=== PATIENT | male | born 1965 | race Caucasian/White ===

== ENCOUNTER 2018-03-14 17:34 | Inpatient (IN) | payer OTHER ==
[2018-03-14 18:13] LABS: Absolute Lymphocytes (CBC) 0.6 K/uL (0.7-4.9); Absolute Monocytes 0.5 K/uL (0.1-1.3); Absolute Neutrophil 10.9 K/uL (1.8-8.0); Basophils % 0.3 % (0-1.3); Eosinophils % 0.5 % (0-4.4); Hematocrit 37.6 % (39.6-49.0); Lymphocytes % 5.3 % (15.3-44.8); MCH 29.7 pg (27.0-35.0); MCV 88.2 fL (80-100); MPV 8.9 fL (7.6-11.3); Monocytes % 4.4 % (3.3-12.3); RBC Red Blood Cell Count 4.27 M/uL (4.33-5.43)
[2018-03-14] MEDS ORDERED: NA CHLORIDE 0.9% 1,000 ML ONE (18:31)
[2018-03-14 18:40] LABS: ALT/SGPT 13 U/L (12-78); AST/SGOT 14 U/L (15-37); Albumin 3.2 g/dL (3.4-5.0); Alkaline Phosphatase 72 U/L (45-117); BUN Blood Urea Nitrogen 16 mg/dL (7-18); Bicarbonate 22 mmol/L (21-32); Bilirubin Direct 0.4 mg/dL (0-0.2); Bilirubin Total 2.1 mg/dL (0.2-1.0); CKMB Creatine Kinase MB < 1.0 ng/mL (0.3-3.6); Creatine Phosphokinase 107 U/L (39-308); Glucose Level 113 mg/dL (74-106); NT PRO-BNP 173 pg/mL (<125); Potassium 3.1 mmol/L (3.5-5.1); Protein, Total 6.4 g/dL (6.4-8.2); Sodium Level 127 mmol/L (136-145); Troponin (Emerg Dept Use Only) < 0.02 ng/mL (0.0-0.045)
[2018-03-14 18:42] LABS: Magnesium 1.4 mg/dL (1.8-2.4); Protime INR 1.19
[2018-03-14] MEDS ORDERED: Magnesium Sulfate 2gm IVPB 2 G/50 ML BAG IV ONE (18:56)
--- NOTE | 2018-03-14 19:22 | EKG ---
Test Date: 2018-03-14 Test Time: 17:36:39 Body Specialist: ALBINA MEASUREMENT RESULTS: Intervals: Rate: 73 AK: 144 QRSD: 92 QT: 410 QTc: 451 [place]: P: 76 AK: 144 QRS: 46 T: 48 INTERPRETIVE STATEMENTS: Normal sinus rhythm Normal ECG No previous ECG available for comparison Electronically Signed On 03-14-18 19:22:28 CDT by Riki Bonilla
--- NOTE | 2018-03-14 19:35 | EDPHYS ---
Physician Documentation [facility] Name: Patricia Douglas Age: 52 yrs Sex: Male : 1965 Arrival Date: 03/14/2018 Time: 17:36 Bed 19 Private MD: ED Physician Benjamin Cortes HPI: 03/14 19:07 This 52 yrs old Male presents to ER via EMS with complaints of Heat Exposure. snw 19:07 Pt states he has felt bad for one week, "drained". Pt states he had some antibiotics snw for a staph infection that he finished recently. Took meds x 2 weeks. Will get pharmacy to send medication list. Onset: The symptoms/episode began/occurred gradually, 1 week(s) ago, and became persistent. Severity of symptoms: At their worst the symptoms were moderate today. The patient has not experienced similar symptoms in the past. as noted. Pt sees MD in [place] in [place]. Historical: - Allergies: 17:41 Codeine; hb - Home Meds: 17:41 Bactrim DS Oral [Active]; hb - PMHx: 17:41 Ulcers; hb - PSHx: 17:41 neck; hb - Immunization history:: Adult Immunizations up to date. - Social history:: Smoking status: Patient/guardian denies using tobacco. - Ebola Screening: : No symptoms or risks identified at this time. ROS: 19:04 Eyes: Negative for injury, pain, redness, and discharge, ENT: Negative for injury, snw pain, and discharge, Neck: Negative for injury, pain, and swelling, Cardiovascular: Negative for chest pain, palpitations, and edema, Respiratory: Negative for shortness of breath, cough, wheezing, and pleuritic chest pain. 19:04 Back: Negative for injury and pain. 19:04 Skin: Negative for injury, rash, and discoloration. 19:04 Constitutional: Positive for malaise. 19:04 Abdomen/GI: Positive for nausea and vomiting, anorexia. 19:04 : Positive for self cath. 19:04 MS/extremity: Positive for malaise/fatigue. 19:04 Neuro: Positive for dizziness, near syncope, over heated. Exam: 19:01 Head/Face: Normocephalic, atraumatic. Eyes: Pupils equal round and reactive to light, snw extra-ocular motions intact. Lids and lashes normal. Conjunctiva and sclera are non-icteric and not injected. Cornea within normal limits. Periorbital areas with no swelling, redness, or edema. ENT: Nares patent. No nasal discharge, no septal abnormalities noted. Tympanic membranes are normal and external auditory canals are clear. Oropharynx with no redness, swelling, or masses, exudates, or evidence of obstruction, uvula midline. Mucous membranes moist. Neck: Trachea midline, no thyromegaly or masses palpated, and no cervical lymphadenopathy. Supple, full range of motion without nuchal rigidity, or vertebral point tenderness. No Meningismus. Chest/axilla: Normal chest wall appearance and motion. Nontender with no deformity. No lesions are appreciated. Cardiovascular: Regular rate and rhythm with a normal S1 and S2. No gallops, murmurs, or rubs. Normal PMI, no JVD. No pulse deficits. Respiratory: Lungs have equal breath sounds bilaterally, clear to auscultation and percussion. No rales, rhonchi or wheezes noted. No increased work of breathing, no retractions or nasal flaring. Abdomen/GI: Soft, non-tender, with normal bowel sounds. No distension or tympany. No guarding or rebound. No evidence of tenderness throughout. Back: No spinal tenderness. No costovertebral tenderness. Full range of motion. 19:01 Constitutional: The patient appears awake, anxious, listless. 19:01 Skin: Appearance: Color: pale. 19:01 Neuro: Orientation: is normal, Mentation: able to follow commands, Memory: is normal, seizure activity, is not displayed by the patient, Abnormal movements: there are no abnormal movements. 19:01 Psych: Affect is odd. Vital Signs: 17:36 BP 148 / 73; Pulse 70; Resp 16; Temp 98.1; Pulse Ox 100% on R/A; Pain 0/10; hb 18:21 BP 138 / 64; Pulse 88; Resp 15; Pulse Ox 100% on R/A; hb 19:00 BP 141 / 73; Pulse 70; Resp 21; Pulse Ox 100% ; bp 20:15 BP 142 / 77; Pulse 67; Resp 12; Pulse Ox 95% ; bp MDM: 17:37 Patient medically screened. [facility] 19:28 Data reviewed: vital signs, nurses notes. Data interpreted: Pulse oximetry: on room air snw is 100 %. Interpretation: normal. Counseling: I had a detailed discussion with the patient and/or guardian regarding: the historical points, exam findings, and any diagnostic results supporting the discharge/admit diagnosis, the presence of at least one elevated blood pressure reading (>120/80) during this emergency department visit, lab results, the need for further work-up and treatment in the hospital. 19:33 Physician consultation: Andie Steinberg MD was called at 19:33, was contacted at 19:33, snw regarding admission, to the telemetry unit. Refusal of service: The patient/guardian displays adequate decision making capability and despite a detailed discussion of alternatives, benefits, risks, and consequences refuses: all X-rays. 03/14 17:47 Order name: Basic Metabolic Panel; Complete Time: 18:43 snw 03/14 17:47 Order name: CBC with Diff; Complete Time: 19:58 snw 03/14 17:47 Order name: Ckmb; Complete Time: 18:43 snw 03/14 17:47 Order name: CPK; Complete Time: 18:43 snw 03/14 17:47 Order name: LFT's; Complete Time: 18:43 snw 03/14 17:47 Order name: Magnesium; Complete Time: 18:43 snw 03/14 17:47 Order name: NT PRO-BNP; Complete Time: 18:43 snw 03/14 17:47 Order name: PT-INR; Complete Time: 18:43 snw 03/14 17:47 Order name: Ptt, Activated; Complete Time: 18:43 snw 03/14 17:47 Order name: Troponin (emerg Dept Use Only); Complete Time: 18:43 snw 03/14 18:30 Order name: CBC Smear Scan; Complete Time: 19:58 EDMS 03/14 18:42 Order name: Urine Dipstick--Ancillary (enter results) bd 03/14 18:46 Order name: Add On-Lab snw 03/14 18:57 Order name: Osmolality, Serum EDMS 03/14 17:47 Order name: XRAY Chest (1 view) snw 03/14 17:47 Order name: EKG; Complete Time: 17:48 snw 03/14 17:47 Order name: Cardiac monitoring; Complete Time: 18:18 snw 03/14 17:47 Order name: EKG - Nurse/Tech; Complete Time: 18:19 snw 03/14 17:47 Order name: IV Saline Lock; Complete Time: 18:19 snw 03/14 17:47 Order name: Labs collected and sent; Complete Time: 18:19 snw 03/14 17:47 Order name: O2 Per Protocol; Complete Time: 18:19 snw 03/14 17:47 Order name: O2 Sat Monitoring; Complete Time: 18:19 snw 03/14 17:47 Order name: Urine Dipstick-Ancillary (obtain specimen); Complete Time: 18:39 snw 03/14 18:57 Order name: Osmolality, Urine; Complete Time: 20:33 EDMS 03/14 19:07 Order name: Blood Culture Adult (2) snw 03/14 19:29 Order name: UR SODIUM; Complete Time: 19:58 EDMS 03/14 20:10 Order name: RAD; Complete Time: 20:10 EDMS 03/14 19:35 Order name: Ruffin; Complete Time: 19:42 snw Administered Medications: 18:22 Drug: NS 0.9% 1000 ml Route: IV; Rate: 125 ml/hr; Site: left forearm; hb 20:41 Follow up: IV Status: Completed infusion; IV Intake: 500ml bp 18:59 Drug: Magnesium Sulfate 2 grams Route: IVPB; Infused Over: 2 hrs; Site: left forearm; hb 20:41 Follow up: IV Status: Completed infusion bp 19:45 Drug: Rocephin 1 grams Route: IV; Rate: calculated rate; Site: left forearm; bp 20:09 Follow up: IV Status: Completed infusion; IV Intake: 50ml bp Disposition: 03/15 07:26 Co-signature as Attending Physician, Benjamin Cortes MD I agree with the assessment and jason plan of care. Disposition: 03/14/18 19:34 Hospitalization ordered by Andie Steinberg for Inpatient Admission. Preliminary diagnosis are Dehydration, Urinary tract infection, site not specified. - Bed requested for Telemetry/MedSurg (Inpatient). - Status is Inpatient Admission. bp - Condition is Stable. - Problem is new. - Symptoms are unchanged. UTI on Admission? Yes Signatures: Dispatcher [facility] Cantor, LynnLOREN krueger RN, Corey, MD MD cha Therrien, Shelly, EDGE GRINDER MACHINE-C EDGE GRINDER MACHINE-Csnw Chasity Vigil, LOREN PIMENTEL Kraig Crespo RN RN bp Corrections: (The following items were deleted from the chart) 03/14 19:51 19:34 Hospitalization Ordered by Andie Steinberg MD for Inpatient Admission. Preliminary diagnosis is Dehydration; Urinary tract infection, site not specified. Bed requested for Telemetry/MedSurg (Inpatient). Status is Inpatient Admission. Condition is Stable. Problem is new. Symptoms are unchanged. UTI on Admission? Yes. snw 21:08 19:51 03/14/2018 19:34 Hospitalization Ordered by Andie Steinberg MD for Inpatient bp Admission. Preliminary diagnosis is Dehydration; Urinary tract infection, site not specified. Bed requested for Telemetry/MedSurg (Inpatient). Status is Inpatient Admission. Condition is Stable. Problem is new. Symptoms are unchanged. UTI on Admission? Yes.
--- NOTE | 2018-03-14 19:35 | ER ---
Nurse's Notes 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 BP 138/88, HR 80, BGL 127. 18g LEFT Hand, NS 500ml bolus administered DELIVERY SPECIALIST. Transition of care: patient was not received from another setting of care. Onset of symptoms was March 14, 2018. Risk Assessment: Do you want to hurt yourself or someone else? Patient reports no desire to harm self or others. Initial Sepsis Screen: Does the patient meet any 2 criteria? No. Patient's initial sepsis screen is negative. Does the patient have a suspected source of infection? No. Patient's initial sepsis screen is negative. Care prior to arrival: Medication(s) given: Normal saline infusion, 500 mL, IV initiated. 18 GA, 22 GA, hand, Glucose check: 127. 17:36 Method Of Arrival: EMS: [facility] 17:36 Acuity: NANDINI 3 hb Triage Assessment: 17:41 General: Appears in no apparent distress. Behavior is calm, cooperative. Pain: Denies hb pain. EENT: No signs and/or symptoms were reported regarding the EENT system. Neuro: Level of Consciousness is awake, alert, obeys commands, Oriented to person, place, time, situation, Pupils are PERRLA. Cardiovascular: Heart tones S1 S2 present Capillary refill < 3 seconds Patient's skin is warm and dry. Respiratory: Airway is patent Trachea midline Respiratory effort is even, unlabored, Respiratory pattern is regular, symmetrical, Breath sounds are clear bilaterally. GI: No signs and/or symptoms were reported involving the gastrointestinal system. : No signs and/or symptoms were reported regarding the genitourinary system. Derm: Skin is intact, is healthy with good turgor. Musculoskeletal: No signs and/or symptoms reported regarding the musculoskeletal system. Historical: - Allergies: 17:41 Codeine; hb - Home Meds: 17:41 Bactrim DS Oral [Active]; hb - PMHx: 17:41 Ulcers; hb - PSHx: 17:41 neck; hb - Immunization history:: Adult Immunizations up to date. - Social history:: Smoking status: Patient/guardian denies using tobacco. - Ebola Screening: : No symptoms or risks identified at this time. Screenin:42 Abuse screen: Denies threats or abuse. Denies injuries from another. Nutritional hb screening: No deficits noted. Tuberculosis screening: No symptoms or risk factors identified. Fall Risk Total Bolanos Fall Scale indicates Low Risk Score (25-44 pts). Fall prevention measures have been instituted. Side Rails Up X 2 Frequent Obs/Assesments occuring As available Patient and Family Educated on Fall Prevention Program and strategies. Assessment: 17:42 General: see triage assessment . hb 18:20 Reassessment: Patient appears in no apparent distress at this time. No changes from hb previously documented assessment. Patient and/or family updated on plan of care and expected duration. Pain level reassessed. Patient is alert, oriented x 3, equal unlabored respirations, skin warm/dry/pink. 19:00 Reassessment: RECD REPORT FROM CHASITY PIMENTEL. 52YO WM P/W NEAR-SYNCOPE AND HEAT bp EXHAUSTION. PT ELECTROLYTES GROSSLY ABNORMAL, ADMIT PENDING. 20:30 Reassessment: ADMIT IN PROCESS, GREGORY REMOVED AT PT INSISTENCE, ADMIT ORDERS PENDING. bp Vital Signs: 17:36 BP 148 / 73; Pulse 70; Resp 16; Temp 98.1; Pulse Ox 100% on R/A; Pain 0/10; hb 18:21 BP 138 / 64; Pulse 88; Resp 15; Pulse Ox 100% on R/A; hb 19:00 BP 141 / 73; Pulse 70; Resp 21; Pulse Ox 100% ; bp 20:15 BP 142 / 77; Pulse 67; Resp 12; Pulse Ox 95% ; bp ED Course: 17:36 Patient arrived in ED. hb 17:37 Mary Grace Licona FNP-C [facility] snw 17:37 Benjamin Cortes MD is Attending Physician. snw 17:40 Triage completed. hb 17:41 Arm band placed on right wrist. hb 17:42 Patient has correct armband on for positive identification. Placed in gown. Bed in low hb position. Call light in reach. Side rails up X2. 18:04 EKG done, by air analysis engineering technician. reviewed by Mary Grace RAMON. sm3 18:13 Radiology exam delayed due to PT REQUEST TO SPEAK TO KATARZYNA BURRELL BEFORE GETTING 1V CXR. jr1 18:18 Chasity Vigil, RN is Primary Nurse. hb 19:23 Gregory cath inserted, using sterile technique, 12 Fr., by ne, balloon inflated, to cb2 gravity drainage, clamped. 19:34 Andie Steinberg MD is Hospitalizing Provider. snw 19:51 X-ray completed. Portable x-ray completed in exam room. Patient tolerated procedure ka well. 20:10 Gregory cath removed intact, balloon deflated, PER PT REQUEST. bp 20:22 No provider procedures requiring assistance completed. bp 20:24 Patient admitted, IV remains in place. bp 20:32 Primary Nurse role handed off by Chasity Vigil, RN bp 20:32 Kraig Crespo, RN is Primary Nurse. bp Administered Medications: 18:22 Drug: NS 0.9% 1000 ml Route: IV; Rate: 125 ml/hr; Site: left forearm; hb 20:41 Follow up: IV Status: Completed infusion; IV Intake: 500ml bp 18:59 Drug: Magnesium Sulfate 2 grams Route: IVPB; Infused Over: 2 hrs; Site: left forearm; hb 20:41 Follow up: IV Status: Completed infusion bp 19:45 Drug: Rocephin 1 grams Route: IV; Rate: calculated rate; Site: left forearm; bp 20:09 Follow up: IV Status: Completed infusion; IV Intake: 50ml bp Intake: 20:09 IV: 50ml; Total: 50ml. bp 20:41 IV: 500ml; Total: 550ml. bp Outcome: 19:34 Decision to Hospitalize by Provider. snw 20:44 Admitted to Med/surg accompanied by tech, via wheelchair, room 405, with chart. bp 20:44 Condition: stable 20:44 Instructed on the need for admit. 21:08 Patient left the ED. bp Signatures: Mary Grace Licona FNP-C LUBRICATION SUPERVISOR-Csnw MarkKrista jr1 Katie Merino Heather, RN RN Mando Manuel cb2 Kraig Crespo RN RN bp Roberts, Verónica sm3
[2018-03-14 19:57] LABS: Blood Morphology Comment NOT SEEN (NOT SEEN); Platelet Estimate ADEQ; Urine White Blood Cell Casts OK
[2018-03-14] MEDS ORDERED: CEFTRIAXONE/SWI 1gm 1 GM/10 ML SYR ONE (20:08)
--- NOTE | 2018-03-14 20:09 | RAD REPORT ---
EXAM DESCRIPTION: RAD - Chest Single View - 03/14/2018 7:54 pm CLINICAL HISTORY: CHEST PAIN Chest pain. COMPARISON: No comparisons FINDINGS: Portable technique limits examination quality. The lungs are grossly clear. The heart is normal in size. No displaced fractures.Cervical spine hardw are plate noted. IMPRESSION: No acute intrathoracic process suspected.
[2018-03-14] MEDS ORDERED: ONDANSETRON 4 MG/2 ML VIAL IV PRN (21:06)
--- NOTE | 2018-03-14 21:07 | P.HP ---
Certification for Inpatient Patient admitted to: Inpatient With expected LOS: >2 Midnights Practitioner: I am a practitioner with admitting privileges, knowledge of patient current condition, hospital course, and medical plan of care. Services: Services provided to patient in accordance with Admission requirements found in Title 42 Section 412.3 of the Code of Federal Regulations Patient History Date of Service: 03/14/18 Reason for admission: Hypernatremia History of Present Illness: Mr. Douglas is a 52-year-old male with history of neurogenic bladder requiring frequent self catheterization, who was working today outside, when started feeling weak and lethargic. He was also dizzy. He denied any nausea and vomiting. No fever no chills. Laboratory work remarkable for significant electrolyte disturbance, sodium 127, potassium 3.1, magnesium 1.4, creatinine 1.2 BUN 16. He was afebrile, blood pressure 148/73, HR 77. In my encounter, the patient was in significant distress, since he was uncomfortable with the Ruffin catheter placed, and he was requesting his regular latex catheter that unfortunately with done in this hospital. Allergies codeine Allergy (Unverified 10/09/15 13:31) Unknown Home medications list reviewed: Yes - Past Medical/Surgical History -: Neurogenic bladder Past Surgical History: Reviewed- Non-Contributory - Family History Family History: Reviewed- Non-Contributory - Social History Alcohol use: No CD- Drugs: No Place of Residence: Home Review of Systems 10-point ROS is otherwise unremarkable Physical Examination - Physical Exam General: Alert, In no apparent distress HEENT: Atraumatic, PERRLA, Mucous membr. moist/pink, EOMI, Sclerae nonicteric Neck: Supple, 2+ carotid pulse no bruit, No LAD, Without JVD or thyroid abnormality Respiratory: Clear to auscultation bilaterally, Normal air movement Cardiovascular: Regular rate/rhythm, Normal S1 S2 Gastrointestinal: Normal bowel sounds, No tenderness Musculoskeletal: No tenderness Integumentary: No rashes Neurological: Normal speech, Normal strength at 5/5 x4 extr, Normal tone, Normal affect Lymphatics: No axilla or inguinal lymphadenopathy - Studies Laboratory Data (last 24 hrs) 03/14/18 17:54: PT 14.1 H, INR 1.19, APTT 27.2 03/14/18 17:54: WBC 12.2 H, Hgb 12.7 L, Hct 37.6 L, Plt Count 161 03/14/18 17:54: Sodium 127 L, Potassium 3.1 L, BUN 16, Creatinine 1.20, Glucose 113 H, Magnesium 1.4 L*, Total Bilirubin 2.1 H, AST 14 L, ALT 13, Alkaline Phosphatase 72 Assessment and Plan - Plan Assessment: 1. Electrolyte disturbance 2. Neurogenic bladder 3. Heat exhaustion Plan: Will admit the patient in the medical floor monitor, will replace electrolytes as needed per protocol. He has had a traumatic Ruffin catheter placed, now he has hematuria. It has been discontinued. Will try to find a catheter that is comfortable for him. UA pending. - Advance Directives Does patient have a Living Will: No Does patient have a Durable POA for Healthcare: No - Code Status/Comfort Care Code Status Assessed: Yes Code Status: Full Code
[2018-03-14 21:42] LABS: Urine Blood TRACE (NEG); Urine Glucose NEGATIVE (NEG); Urine Protein NEGATIVE (NEG)
[2018-03-14] MEDS: NA CHLORIDE 0.9% 1,000 ML IV SCH (21:57)
[2018-03-14] MEDS ORDERED: ACETAMINOPHEN 325 MG TABLET PO ONE (22:17)
[2018-03-14] MEDS ORDERED: NA CHLORIDE 0.9% 1,000 ML IV ONE ×2 (22:20→23:54)
[2018-03-15] MEDS ORDERED: NA CHLORIDE 0.9% 1,000 ML IV ONE (02:46)
[2018-03-15] MEDS: ACETAMINOPHEN 500 MG TAB PO PRN ×2 (03:00→13:59)
[2018-03-15 03:21] LABS: Absolute Lymphocytes (CBC) 0.2 K/uL (0.7-4.9); Absolute Neutrophil 6.3 K/uL (1.8-8.0); Eosinophils % 0.1 % (0-4.4); Hematocrit 35.9 % (39.6-49.0); Lymphocytes % 2.7 % (15.3-44.8); MCH 30.7 pg (27.0-35.0); MCV 87.2 fL (80-100); MPV 9.4 fL (7.6-11.3); Monocytes % 0.5 % (3.3-12.3); RBC Red Blood Cell Count 4.12 M/uL (4.33-5.43)
[2018-03-15] MEDS ORDERED: POTASSIUM 25 MEQ EFFERV TAB PO ONE (05:27)
[2018-03-15] MEDS: NA CHLORIDE 0.9% 1,000 ML IV SCH ×4 (05:51→13:06)
[2018-03-15 06:38] LABS: Urine Appearance CLEAR; Urine Bilirubin NEGATIVE (NEG); Urine Blood 2+ (NEG); Urine Color YELLOW; Urine Glucose NEGATIVE (NEG); Urine Protein NEGATIVE (NEG); Urine Specific Gravity <=1.005 (1.005-1.030); Urine Urobilinogen 0.2 mg/dL (0.2-1.0)
[2018-03-15 06:45] LABS: Urine Microscopic Reflex ORDER UMIC
[2018-03-15 06:54] LABS: Urine Amorphous Sediment 1+ /HPF (NONE SEEN); Urine Bacteria <20 /HPF (NONE SEEN); Urine Culture Reflex Order NOT NEEDED; Urine RBC <5 /HPF (NONE SEEN)
[2018-03-15] MEDS ORDERED: NA CHLORIDE 0.9% 500 ML IV ONE ×3 (06:54→08:37)
[2018-03-15] MEDS ORDERED: NOREPINEPHRINE 4 MG in D5W 250 ML IV PRN (07:31)
[2018-03-15] MEDS ORDERED: Magnesium Sulfate 2gm IVPB 2 G/50 ML BAG IV ONE (08:39)
[2018-03-15] MEDS: ENOXAPARIN 40 MG/0.4 ML SQ SCH (08:48)
[2018-03-15] MEDS: Levofloxacin 750mg IV 750 MG/150 ML BAG IV SCH (08:48)
[2018-03-15] MEDS ORDERED: CEFTRIAXONE 1 GM/NS 50 ML 1 GM/50 ML BAG IV SCH (09:00)
[2018-03-15] MEDS: VANCOMYCIN 1.5 GM in NA CHLORIDE 0.9% 500 ML IVPB SCH (09:57)
--- NOTE | 2018-03-15 11:59 | RAD REPORT ---
EXAM DESCRIPTION: CT - Abdomen Pelvis Wo Contrast - 03/15/2018 11:22 am CLINICAL HISTORY: Sepsis, UTI, hypotension COMPARISON: None. TECHNIQUE: Axial [address] imaging of the abdomen and pelvis was performed without IV contrast. No IV contrast was given because of allergy, abnormal renal function, patient refusal or physician re quest. No oral contrast administered. All CT scans are performed using dose optimization technique as appropriate and may include automated exposure control or mA/KV adjustment according to patient size. FINDINGS: Trace pleural effusion in the posterior gutter on the right. No lung base pneumonia. No ca rdiomegaly or pericardial effusion. The liver, spleen and pancreas show no suspicious findings on non-contrast imaging. Gallbladder and b iliary tree are also without suspicious finding. Gallstones can be occult on CT imaging. The mild right-sided hydronephrosis is present to the level of the UVJ. No obstructing mass or calcul us seen. Punctate nonobstructing calculi seen in calices of the upper and mid right kidney. There is fluid and stranding surrounding the right kidney. Left kidney is much smaller than the right. Multipl e round low-density masses are present. In the upper pole left kidney a 2.5 centimeter mass is presen t. In the lower pole of the left kidney homogeneous fluid attenuation masses are present measuring 4. 6 and 3.6 cm in size. Patient has moderate dilatation of the left renal pelvis and mild dilatation of calices. Ureteral dilatation is minimal. No obstructing or nonobstructing calculi. Urinary bladder w all is thickened. No calcification, air or mass identified. No significant adrenal finding. Isodense renal masses and pyelonephritis cannot be excluded in the a bsence of IV contrast. Small hiatal hernia is present. Stomach is decompressed. No gross evidence for gastric wall thickenin g or mass. A few nonspecific nondilated fluid-filled small bowel loops are present. There is a large amount of stool dilating the colon and distending the rectum. Mass or acute colon process is not susp ected. No free air, free fluid or pneumatosis. No bulky lymphadenopathy or mass. A small fat only umb ilical hernia is seen. No inguinal hernias. There is edema or stranding posterior to the lower sacral segments. No air in the soft tissues. No suspicious bony findings. IMPRESSION: Right-sided hydronephrosis without an obstructing calculus. Right kidney is edematous wi th fluid in stranding in the perinephric fat. Pyelonephritis is certainly possible. This cannot be fully assessed in the absence of contrast. The h ydronephrosis could be secondary to blood or inflammatory debris. Left-sided pyelonephritis is not suspected but cannot be excluded on noncontrast imaging. Urinary bladder wall is mildly thickened. Cystitis is certainly possible. Gallstones can be occult on CT imaging. Acute gallbladder or biliary tree finding not suspected. No acute GI process seen as a source for sepsis. There is a large amount of stool dilating the rectum . Stranding is seen in the subcutaneous fatty tissues overlying the lower sacrum and coccyx. Developing decubitus ulcer cannot be excluded and can be correlated with physical exam findings. No air in the soft tissues. No acute lung base finding. Full assessment is limited is the absence of IV contrast.
[2018-03-15 12:57] LABS: CKMB Creatine Kinase MB 7.8 ng/mL (0.3-3.6); Uric Acid 4.4 mg/dL (3.5-7.2)
[2018-03-15] MEDS ORDERED: HYDROCODONE/APAP 7.5/325 MG TAB PO PRN (15:06)
[2018-03-15] MEDS ORDERED: MORPHINE 2 MG/ML SYR IV PRN (15:06)
[2018-03-15] MEDS ORDERED: TRAMADOL HCL 50 MG TAB PO PRN (15:06)
--- NOTE | 2018-03-15 15:13 | P.PN ---
Subjective Date of Service: 03/15/18 Primary Care Provider: Dr. Pineda([place]); Urology-Dr. Dixon Chief Complaint: Hypernatremia Subjective: Other (Patient was transferred to ICU early this morning due to low blood pressure. Patient was started on IV Levophed. Patient continues with IV fluids. Patient stable at this time.) Physical Examination - Vital Signs Temperature: 99.1 F Blood Pressure: 120/67 Pulse: 74 Respirations: 23 Pulse Ox (%): 100 - Physical Exam General: Alert, In no apparent distress, Oriented x3, Cooperative HEENT: Atraumatic Neck: Supple Respiratory: Clear to auscultation bilaterally, Normal air movement Cardiovascular: Normal pulses, Regular rate/rhythm Gastrointestinal: Normal bowel sounds, Soft and benign, Non-distended, Tenderness (Pain to the right flank) Musculoskeletal: No tenderness, No warmth Integumentary: No tenderness/swelling, No erythema, No warmth, No cyanosis Neurological: Normal speech, Normal strength at 5/5 x4 extr, Normal tone, Normal affect - Studies Laboratory Data (last 24 hrs) 03/14/18 17:54: PT 14.1 H, INR 1.19, APTT 27.2 03/14/18 17:54: WBC 12.2 H, Hgb 12.7 L, Hct 37.6 L, Plt Count 161 03/14/18 17:54: Sodium 127 L, Potassium 3.1 L, BUN 16, Creatinine 1.20, Glucose 113 H, Magnesium 1.4 L*, Total Bilirubin 2.1 H, AST 14 L, ALT 13, Alkaline Phosphatase 72 Medications List Reviewed: Yes Assessment & Plan Discharge Plan: Home Plan to discharge in: Greater than 2 days Physician Review Additional Text: Impression: Septic shock secondary to right sided pyelonephritis with hydronephrosis with history of urinary retention Acute renal injury secondary to dehydration GERD with hiatal hernia Hypokalemia Hypomagnesia Plan: Transfer the patient to the ICU early this morning due to septic shock. Patient now on IV Levophed. Will maintain blood pressures above 100 systolic. Will continue with aggressive IV fluids. Patient with history of urinary retention. Patient does not desire Ruffin catheter. Will need to monitor urine output closely. CT scan reviewed. Right-sided pyelonephritis with hydronephrosis noted. Patient on IV antibiotic therapy. Await urine culture and blood culture. Will provide medication for GERD. Nephrology consulted to address acute renal injury. Urology consulted to further address hydronephrosis and pyelonephritis. Time Spent Managing Pts Care (In Minutes): 55
--- NOTE | 2018-03-15 16:06 | RAD REPORT ---
EXAM DESCRIPTION: US - Renal Ultrasound-Complete - 03/15/2018 3:46 pm CLINICAL HISTORY: Acute renal failure, sepsis, UTI COMPARISON: CT study March 15 FINDINGS: The right kidney measures . The left kidney measures . Renal cortical thickness and echog enicity are normal. No hydronephrosis or suspicious renal mass. Distended urinary bladder shows no focal wall thickening or mass. No intraluminal filling defect. CT study showed mild wall thickening that could indicate an underlying cystitis. No stone or intralumina l filling defects seen. Prominent right-sided hydronephrosis and hydroureter noted matching the CT finding. Cortical thicknes s and echogenicity are normal on the right. No abscess or perinephric suspicious finding. Pyelonephri tis is still possible. Dilatation of the left renal pelvis is present also matching the CT study. Patient has multiple varia robbie sized left renal cyst. No suspicious characteristics. Left kidney is smaller than the right with less well-defined parenchyma. Left-sided medical renal disease is not excluded. Right kidney is approximately 12.7 x 7.2 x 8.0 cm. Left kidney is 11.9 x 7.0 x 5.6 cm. This probably exaggerates the true size of the kidney on the left due to the lobulated contour and multiple cysts. IMPRESSION: Prominent right-sided hydronephrosis without obstructive mass identifiable. Right renal cortical thickness and echogenicity are normal range. This does not exclude pyelonephriti s. Smaller left kidney with multiple cysts and hydronephrosis of the pelvis and calices. This matches th e CT study. Left-sided cortical thinning is seen with multiple left-sided simple cysts. No other significant findings.
[2018-03-15] MEDS: PANTOPRAZOLE 40MG TABLET PO SCH (17:45)
--- NOTE | 2018-03-16 01:30 | CON ---
Date of Consultation: 03/15/2018 Reason For Consultation: Elevated BUN and creatinine, fluid management. History Of Present Illness: This is a pleasant 52-year-old gentleman with significant past medical h istory of hypertension, neurogenic bladder, on self-catheter followup with the urologist in [facility]. The patient was in his regular state of health, started feeling dizzy and nauseated. For that reason, reported to the hospital. In the hospital, found to have hyponatremia. Sodium was down to 121, with elevated BUN and creatinine. For that reason, we have been consulted. On presentation, th e patient's blood pressure was stable. Then, over the night, the patient developed hypotensive blood pressure down to the 70. For that reason, the patient was transferred to the ICU and placed on pres sor. The patient's Ruffin was inserted, drain of 2 L clear urine. Workup showed that he had hydronep hrosis before placement of the Ruffin. Past Medical History: Includes; 1.Hypertension. 2.Neurogenic bladder. Allergies: TO CODEINE. Family History: Positive for hypertension. Social History: Denies smoking. Denies drinking. Denies drug abuse. Review of Systems: Head and Neck: No red eye. No ear pain. Gastrointestinal: Has abdominal pain. Genitourinary: Has neurogenic bladder. Gynecologic: Not applicable. Respiratory: No shortness of breath. Cardiovascular: Has low blood pressure. Endocrine: No polydipsia. SKIN: No rash. Neurologic: Has a neurogenic bladder. Musculoskeletal: No pain. Physical Examination: Vital Signs: When I saw the patient, the patient's blood pressure was 110/63, pulse of 88. Chest: Clear to auscultation. Heart: S1, S2. Regular. Abdomen: Soft. Dullness on the suprapubic area. Extremities: No edema. Neurological: Alert and oriented x3. Nonfocal. Laboratory Data: WBC 6.5, H and H of 12.6/35.9, and platelets 131. Sodium on presentation 127, pota ssium 3.1, BUN 16, creatinine 1.2, magnesium 1.4. Today, sodium 134, potassium 3, bicarb 21, BUN 18, creatinine 1.5, GFR of 49, calcium 7.5, magnesium 1.5. BNP 1700. Albumin 3.2. CT abdomen and pelv is showing right-sided hydronephrosis without any obstruction or calculi. Right side edematous with fluid stranding on the perinephric fat. Pyelonephritis possible. Left-sided pyelonephritis. Urine bladder wall mildly thickening with cystitis. Chest x-ray; no congestion. Home Medications: Include Bactrim. The patient's last dose was Wednesday. Current Medications: Include; 1.Lovenox. 2.Levaquin. 3.Tramadol. 4.Vancomycin. Culture still pending. Assessment And Plan: 1.Acute kidney injury secondary to obstructive uropathy/toxic acute tubular necrosis secondary to se psis/poor perfusion acute tubular necrosis secondary to hypotension. a.I am going to go ahead and continue aggressive hydration to establish better volume control and fl uid resuscitation for the patient, and we will monitor the patient. b.Agree with Ruffin placement. c.We will follow up with Urology. 2.Hyponatremia secondary to depletion. We will continue IV hydration. 3.Hypokalemia and hypomagnesemia. We will supplement the patient. 4.Complicated urinary tract infection with pyelonephritis and urosepsis with septic shock. I agree with current antibiotic. We will follow up the culture. Continue Levophed. We will follow up with Urology. Thank you Dr. King for allowing us to participate in the care of your patient. This is discussed w ith the patient who verbalized understanding. Discussed with Dr. King who agreed on the plan. ABRAHAN Voice ID: [id number] Report ID: [id number]
[2018-03-16] MEDS: NA CHLORIDE 0.9% 1,000 ML IV SCH ×2 (02:18→05:06)
[2018-03-16] MEDS: VANCOMYCIN 1.5 GM in NA CHLORIDE 0.9% 500 ML IVPB SCH ×2 (02:19→19:42)
[2018-03-16 05:10] LABS: Absolute Monocytes 0.7 K/uL (0.1-1.3); Basophils % 0.4 % (0-1.3); Eosinophils % 0.2 % (0-4.4); Hematocrit 33.8 % (39.6-49.0); Lymphocytes % 6.1 % (15.3-44.8); MCV 88.1 fL (80-100); MPV 9.5 fL (7.6-11.3); Monocytes % 4.3 % (3.3-12.3); RBC Red Blood Cell Count 3.84 M/uL (4.33-5.43)
[2018-03-16] MEDS: Levofloxacin 750mg IV 750 MG/150 ML BAG IV SCH (05:20)
[2018-03-16 05:28] LABS: Albumin 2.4 g/dL (3.4-5.0); Bilirubin Total 0.6 mg/dL (0.2-1.0); Magnesium 2.5 mg/dL (1.8-2.4); Phosphorus 1.4 mg/dL (2.5-4.9); Potassium 4.3 mmol/L (3.5-5.1); Protein, Total 5.3 g/dL (6.4-8.2)
[2018-03-16] MEDS: ENOXAPARIN 40 MG/0.4 ML SQ SCH (09:27)
[2018-03-16] MEDS: PANTOPRAZOLE 40MG TABLET PO SCH (09:27)
[2018-03-16] MEDS ORDERED: NA CHLORIDE 0.9% 1,000 ML IV ONE (10:29)
--- NOTE | 2018-03-16 13:05 | P.PN ---
Subjective Date of Service: 03/16/18 Primary Care Provider: Dr. Pineda([place]); Urology-Dr. Dixon Chief Complaint: Hypernatremia Subjective: Improving Physical Examination - Vital Signs Temperature: 98 F Blood Pressure: 109/72 Pulse: 80 Respirations: 10 Pulse Ox (%): 98 - Physical Exam General: Alert, In no apparent distress, Oriented x3, Cooperative HEENT: Atraumatic Neck: Supple Respiratory: Clear to auscultation bilaterally, Normal air movement Cardiovascular: Normal pulses, Regular rate/rhythm Gastrointestinal: Normal bowel sounds, Soft and benign, Non-distended, No tenderness, No masses, No rebound, No guarding Musculoskeletal: No tenderness, No warmth Integumentary: No erythema, No warmth, No cyanosis Neurological: Normal speech, Normal strength at 5/5 x4 extr, Normal tone, Normal affect Lymphatics: No axilla or inguinal lymphadenopathy - Studies Medications List Reviewed: Yes Assessment & Plan Discharge Plan: Home Plan to discharge in: 48 Hours Physician Review Additional Text: Impression: Septic shock secondary to right sided pyelonephritis with hydronephrosis with history of urinary retention Acute renal injury secondary to dehydration GERD with hiatal hernia Hypokalemia Hypomagnesia Plan: Septic shock secondary to right sided pyelonephritis with hydronephrosis with history of urinary retention, now with pena catheter: Continue with IV antibiotics. Await urine and blood cultures. Patient off Vasopressor. Will adjust IV fluids. Will consider transfer to floor if BP stable. Await recommendations from Urology. Case discussed yesterday with Nephrology. History of urinary retention secondary to Neurogenic bladder, now with Pena catheter: Continue with Pena catheter. May need chronic indwelling catheter. Will discuss with Urology. Acute renal injury secondary to dehydration: Improved. Off Vasopressor. IV fluids adjusted. GERD with hiatal hernia:Will continue with PPI. Hypokalemia: Will continue to monitor and adjust. Hypomagnesia: Will continue to monitor adjust Thrombocytopenia: Likely related to sepsis. Will monitor. Hypernatremia: IV fluids adjusted. Time Spent Managing Pts Care (In Minutes): 55
[2018-03-16] MEDS: NACHLORIDE 0.45% 1,000 ML IV SCH ×2 (15:18→23:00)
--- NOTE | 2018-03-16 18:48 | CON ---
History Of Present Illness: A 52-year-old gentleman with history of spina bifida and neurogenic blad win since he was born, had previous surgery on his lower spine, who uses frequent self-catheterizatio n. Was doing well, developed a staph abscess on his left buttock last week, and took some antibiotic s for that. That gave him lots of side effects, and he felt pretty badly yesterday. [facility] were he was diagnosed with pyelonephritis. His CT scan showed mild right hydronephr osis present to the level of the right UVJ. No obstructing mass or stone. He has some punctate nono bstructing calculi in the calices of the upper and mid right kidney. There was fluid surrounding the right kidney. Left kidney was small than the right. Multiple round masses in the kidney, possible cysts. There was a 2.5 cm mass also in the lower pole of left kidney. There was some homogeneous fl uid attenuation masses 4.6 and 3.6 cm in size, and some moderate dilation of left renal pelvis and di lation of the calices. Ureteral dilation was minimal. Urinary bladder wall was thickened also. Als o seen was a small hiatal hernia. Most likely he had some UTI that developed from his intermittent c atheterization that resulted in pyelonephritis, certainly worse on the right than on the left. The patient has been admitted to ICU for IV antibiotics. He is on vancomycin and Levaquin currently. Allergies: TO CODEINE, UNKNOWN WHAT HAPPENS. Home Medication: Bactrim once a day. Past Surgical History: As above, spina bifida surgery. Family History: Noncontributory. Social History: No alcohol. No drug use. Resides at home. Works for [employer]. Review of Systems: A 10 point review of system otherwise unremarkable as mentioned above. Physical Examination: Vital Signs: The patient is afebrile, stable, temperature 98, pulse 80, respiratory rate 10, and blo od pressure 109/74, saturations 98%. General: He is alert, oriented, in no acute distress. Normal appearing male. HEENT: Atraumatic normocephalic. Neck: Supple. Respiratory: Clear to auscultation bilaterally. Cardiovascular: S1-S2. Gastrointestinal: Normal bowel sounds. No known tenderness. Musculoskeletal: No tenderness. Skin: No rashes. : Both testicles descended. He had a Rfufin catheter in phallus draining clear urine. Laboratory Data: Blood culture showed gram-positive cocci in clusters growing. Urine culture [place] [address] up from 12,000 yesterday, H and H is 11 and 34, platelet count 106. Coag ulation; PT shows 14.1, INR 1.2, PTT 27. Chemistry; sodium 147, potassium 4.3, chloride 118, carbon dioxide 23, BUN 15, creatinine 1.2, GFR 63, glucose 118, calcium was 7.9, slightly low. Magnesium is 2.5. His urine did show positive blood, positive nitrite, esterase 2+. Urine culture is pending as mentioned. Assessment And Plan: 1.History of neurogenic bladder, spina bifida. Does clean intermittent catheterization every 3 hour s at work and every 6 hours at home. Right pyelonephritis. Cultures are pending. The patient is on antibiotics. I agree with treatment. We will leave the catheter in for now until he is ready to go home. He can do his CIC at home. He says he has been boiling his catheters at home and sterilizing himself because he is not able to get clean ones, they are too expensive, and his insurance does not pay for it, so I am going to try to see if my office can help him out with a few catheters or get hi m on a catheter program. YEYO/HUMBLE Voice ID: [id number] Report ID: [id number]
--- NOTE | 2018-03-16 21:24 | PN ---
Date of Progress Note: 03/16/2018 Subjective: The patient doing well. The patient had polyuria after Ruffin insertion. The patient krueger d urine output more than 6 L on the last 24 hours. Physical Examination: Vital Signs: Blood pressure 127/82, pulse of 71. Chest: Clear to auscultation. Heart: S1, S2. Regular. Abdomen: Soft, nontender. Extremities: No edema. Laboratory Data: WBC 16.8, H and H 11.5/33.8, platelet 106. Sodium 147, potassium 4.3, bicarb 23, B UN 15, creatinine down to 1.2, GFR of 63, calcium 7.9, phosphorous 1.4, magnesium 2.5. Current Medications: Levaquin 750, vancomycin. The patient off Levophed. Zofran, IV fluid at 100 p er hour of half normal, tramadol, hydrocodone. Assessment And Plan: 1.Acute kidney injury secondary to obstructive uropathy. Bactrim/hydrochlorothiazide, ARB, recovere d back close to baseline. Now, it is both obstructive and polyuria. I am going to bolus the patient with 1 L of normal saline. Then, we will maintain the patient on the same IV fluid. 2.Hypertension. Currently blood pressure controlled. Keep holding ARB and hydrochlorothiazide. 3.Urinary tract infection, urosepsis. Continue current antibiotic. We will follow up culture. 4.Septic shock, resolved. 5.Obstructive uropathy secondary to neurogenic bladder. We will follow up with Urology. ABRAHAN Voice ID: [id number] Report ID: [id number]
[2018-03-17] MEDS: ACETAMINOPHEN 500 MG TAB PO PRN (00:38)
[2018-03-17] MEDS: NACHLORIDE 0.45% 1,000 ML IV SCH ×2 (03:08→09:30)
[2018-03-17 04:09] LABS: Absolute Monocytes 0.7 K/uL (0.1-1.3); Absolute Neutrophil 13.9 K/uL (1.8-8.0); Basophils % 0.4 % (0-1.3); Eosinophils % 0.6 % (0-4.4); Hematocrit 35.8 % (39.6-49.0); Lymphocytes % 6.5 % (15.3-44.8); MCH 29.7 pg (27.0-35.0); MCV 87.4 fL (80-100); MPV 10.1 fL (7.6-11.3); Monocytes % 4.2 % (3.3-12.3); RBC Red Blood Cell Count 4.09 M/uL (4.33-5.43)
[2018-03-17 04:39] LABS: Albumin 2.4 g/dL (3.4-5.0); Bilirubin Total 0.6 mg/dL (0.2-1.0); Magnesium 1.8 mg/dL (1.8-2.4); Phosphorus 1.9 mg/dL (2.5-4.9); Protein, Total 5.6 g/dL (6.4-8.2)
[2018-03-17] MEDS: Levofloxacin 750mg IV 750 MG/150 ML BAG IV SCH (05:50)
[2018-03-17] MEDS ORDERED: MAGNESIUM SULFATE 1 gm IVPB 1 GM/100 ML BAG IV ONE (09:00)
[2018-03-17] MEDS: PANTOPRAZOLE 40MG TABLET PO SCH (09:26)
[2018-03-17] MEDS: ENOXAPARIN 40 MG/0.4 ML SQ SCH (09:27)
[2018-03-17] MEDS: MUPIROCIN 2% OINT 22GM TUBE TOP SCH ×2 (09:33→21:10)
[2018-03-17] MEDS ORDERED: THIAMINE 200 MG/2 ML INJ IVP ONE (11:13)
--- NOTE | 2018-03-17 11:53 | P.PN ---
Subjective Date of Service: 03/17/18 Primary Care Provider: Dr. Pineda([place]); Urology-Dr. Dixon Chief Complaint: Hypernatremia Subjective: Improving Physical Examination - Vital Signs Temperature: 97.6 F Blood Pressure: 106/60 Pulse: 63 Respirations: 20 Pulse Ox (%): 98 - Physical Exam General: Alert, In no apparent distress, Oriented x3, Cooperative HEENT: Atraumatic Neck: Supple Respiratory: Clear to auscultation bilaterally, Normal air movement Cardiovascular: Normal pulses, Regular rate/rhythm Gastrointestinal: Normal bowel sounds, Soft and benign, Non-distended, No masses , No rebound, No guarding Musculoskeletal: No erythema, No tenderness, No warmth Integumentary: No tenderness/swelling, No erythema, No warmth, No cyanosis Neurological: Normal speech, Normal strength at 5/5 x4 extr, Normal tone Urinary: Pena catheter - Studies Medications List Reviewed: Yes Assessment & Plan Discharge Plan: Home Plan to discharge in: 48 Hours Physician Review Additional Text: Impression: Septic shock secondary to right sided pyelonephritis with hydronephrosis with history of urinary retention with history of neurogenic bladder Acute renal injury secondary to dehydration History of urinary retention secondary to neurogenic bladder with noted obstructive uropathy GERD with hiatal hernia Hypokalemia Hypomagnesia Plan: Septic shock secondary to right sided pyelonephritis with hydronephrosis with history of urinary retention/neurogenic bladder and obstructive uropathy, now with pena catheter: Blood cultures negative. Will discontinue vancomycin. Will continue with Levaquin. Await urine culture results. Blood pressure stable off vasopressors. Continue to hold blood pressure medication. Will need to discontinue Pena catheter at discharge. Will have social work job titles help in getting Pena catheters as an outpatient. Anticipate discharge in the next 24-48 hr. Will discuss case with Urology and Nephrology. History of urinary retention secondary to Neurogenic bladder with noted obstructive uropathy, now with Pena catheter: Continue with Pena catheter. This will be discontinued at discharge. Patient will continue with self- catheterizations at discharge. Will try to arrange for help to get Pena catheters as an outpatient. Acute renal injury secondary to dehydration: Improved. Blood pressure stable off vasopressor. GERD with hiatal hernia:Will continue with PPI. Hypokalemia: Will continue to monitor and adjust. Hypomagnesia: Will continue to monitor adjust Thrombocytopenia: Likely related to sepsis. Will monitor. Hypernatremia: IV fluids adjusted. Time Spent Managing Pts Care (In Minutes): 55
[2018-03-17] MEDS ORDERED: D5W 1,000 ML IV SCH (12:00)
--- NOTE | 2018-03-17 16:48 | PN ---
Subjective: The patient is doing well. My office could not arrange for him to get catheters. He wi ll need to work something out with the catheter. Objective: General: The patient is afebrile, stable. Laboratory Data: Urine culture showed less than 10,000 colony forming units per mL. Blood cultures [place]. [place] [address], not quite normal yet. H and H stable. Assessment: Pyelonephritis. All cultures were negative. He possibly has gotten antibiotics before they cultured him, maybe 1 more day of antibiotics may bring his white count down to normal and then he can go home. He will need to go home and we have to get him some type of antibiotic like Bactrim or Cipro, and follow up outpatient. YEYO/HUMBLE Voice ID: [id number] Report ID: [id number]
[2018-03-17 18:26] LABS: Potassium 3.9 mmol/L (3.5-5.1)
[2018-03-17] MEDS: D5W 1,000 ML IV SCH (21:09)
--- NOTE | 2018-03-18 03:11 | PN ---
Date of Progress Note: 03/17/2018 Chief Complaint: Acute kidney injury. History Of Present Illness: Acute kidney injury, nonoliguric secondary to obstructive uropathy complicated by effects of Bactrim, hydrochlorothiazide, and angiotensin receptor roman. Renal function improved. Creatinine is ranging from 1.2 to 1.3. Review of Systems: Denies complaints. Physical Examination: Lungs: Clear to auscultation bilaterally. Heart: S1, S2. Abdomen: Soft. No rebound. Laboratory Data: CBC 15.8, platelet count is 109,000. Creatinine improved from 1.2 to 1.0. Sodium 144, potassium 3.9, chloride 111. BUN 8, creatinine 1.0, glucose 107, calcium 8.4. Impression And Plan: 1. Acute kidney injury, multifactorial in recovery phase. Continue IV fluids , adjust electrolytes replacement as needed. 2. Hypertension, blood pressure controlled. 3. Obstructive uropathy. Urology recommendation to treat urinary tract infection with antibiotics. Currently, the patient is taking antibiotics. Follow up on culture. 4. Septic shock resolved. 5. Obstructive uropathy secondary to neurogenic bladder. Continue with Urology followup. MELISSA/HUMBLE Voice ID: [id number] Report ID: [id number] YISEL
[2018-03-18 05:00] LABS: Absolute Lymphocytes (CBC) 1.8 K/uL (0.7-4.9); Absolute Monocytes 0.5 K/uL (0.1-1.3); Basophils % 0.7 % (0-1.3); Eosinophils % 6.8 % (0-4.4); Hematocrit 36.1 % (39.6-49.0); Lymphocytes % 22.4 % (15.3-44.8); MCH 30.3 pg (27.0-35.0); MCV 86.7 fL (80-100); MPV 9.5 fL (7.6-11.3); Monocytes % 6.3 % (3.3-12.3); RBC Red Blood Cell Count 4.16 M/uL (4.33-5.43)
[2018-03-18 05:23] LABS: Albumin 2.3 g/dL (3.4-5.0); Bilirubin Total 0.5 mg/dL (0.2-1.0); Magnesium 1.8 mg/dL (1.8-2.4); Phosphorus 3.4 mg/dL (2.5-4.9); Potassium 3.7 mmol/L (3.5-5.1); Protein, Total 5.6 g/dL (6.4-8.2)
[2018-03-18] MEDS: D5W 1,000 ML IV SCH (05:53)
[2018-03-18] MEDS: Levofloxacin 750mg IV 750 MG/150 ML BAG IV SCH (05:54)
[2018-03-18] MEDS ORDERED: D5W 1,000 ML IV SCH (08:00)
[2018-03-18] MEDS ORDERED: MAGNESIUM SULFATE 1 gm IVPB 1 GM/100 ML BAG IV ONE (08:00)
[2018-03-18] MEDS ORDERED: POTASSIUM 25 MEQ EFFERV TAB PO ONE (09:00)
[2018-03-18] MEDS ORDERED: THIAMINE HCL 100 MG TABLET PO SCH (09:00)
[2018-03-18] MEDS ORDERED: levoFLOXacin 500 MG TAB PO SCH (09:00)
[2018-03-18] MEDS: MUPIROCIN 2% OINT 22GM TUBE TOP SCH (09:00)
[2018-03-18] MEDS: PANTOPRAZOLE 40MG TABLET PO SCH (09:53)
[2018-03-18] MEDS: ENOXAPARIN 40 MG/0.4 ML SQ SCH (09:54)
--- NOTE | 2018-03-18 10:00 | P.DS ---
Admission Date: 03/14/18 Discharge Date: 03/18/18 Primary Care Provider: Dr. Wilson([place]); Urology-Dr. Dixon Disposition: ROUTINE DISCHARGE Discharge Condition: GOOD Reason for Admission: Hypernatremia Consultations: Urology-Dr. Alcocer Nephrology-Dr. Zamorano Procedures: CT scan: COMPARISON: None. TECHNIQUE: Axial [address] imaging of the abdomen and pelvis was performed without IV contrast. No IV contrast was given because of allergy, abnormal renal function, patient refusal or physician request. No oral contrast administered. All CT scans are performed using dose optimization technique as appropriate and may include automated exposure control or mA/KV adjustment according to patient size. FINDINGS: Trace pleural effusion in the posterior gutter on the right. No lung base pneumonia. No cardiomegaly or pericardial effusion. The liver, spleen and pancreas show no suspicious findings on non-contrast imaging. Gallbladder and biliary tree are also without suspicious finding. Gallstones can be occult on CT imaging. The mild right-sided hydronephrosis is present to the level of the UVJ. No obstructing mass or calculus seen. Punctate nonobstructing calculi seen in calices of the upper and mid right kidney. There is fluid and stranding surrounding the right kidney. Left kidney is much smaller than the right. Multiple round low-density masses are present. In the upper pole left kidney a 2.5 centimeter mass is present. In the lower pole of the left kidney homogeneous fluid attenuation masses are present measuring 4.6 and 3.6 cm in size. Patient has moderate dilatation of the left renal pelvis and mild dilatation of calices. Ureteral dilatation is minimal. No obstructing or nonobstructing calculi. Urinary bladder wall is thickened. No calcification, air or mass identified. No significant adrenal finding. Isodense renal masses and pyelonephritis cannot be excluded in the absence of IV contrast. Small hiatal hernia is present. Stomach is decompressed. No gross evidence for gastric wall thickening or mass. A few nonspecific nondilated fluid-filled small bowel loops are present. There is a large amount of stool dilating the colon and distending the rectum. Mass or acute colon process is not suspected. No free air, free fluid or pneumatosis. No bulky lymphadenopathy or mass. A small fat only umbilical hernia is seen. No inguinal hernias. There is edema or stranding posterior to the lower sacral segments. No air in the soft tissues. No suspicious bony findings. IMPRESSION: Right-sided hydronephrosis without an obstructing calculus. Right kidney is edematous with fluid in stranding in the perinephric fat. Pyelonephritis is certainly possible. This cannot be fully assessed in the absence of contrast. The hydronephrosis could be secondary to blood or inflammatory debris. Left-sided pyelonephritis is not suspected but cannot be excluded on noncontrast imaging. Urinary bladder wall is mildly thickened. Cystitis is certainly possible. Gallstones can be occult on CT imaging. Acute gallbladder or biliary tree finding not suspected. No acute GI process seen as a source for sepsis. There is a large amount of stool dilating the rectum. Stranding is seen in the subcutaneous fatty tissues overlying the lower sacrum and coccyx. Developing decubitus ulcer cannot be excluded and can be correlated with physical exam findings. No air in the soft tissues. No acute lung base finding. Renal ultrasound: COMPARISON: CT study March 15 FINDINGS: The right kidney measures . The left kidney measures . Renal cortical thickness and echogenicity are normal. No hydronephrosis or suspicious renal mass. Distended urinary bladder shows no focal wall thickening or mass. No intraluminal filling defect. CT study showed mild wall thickening that could indicate an underlying cystitis. No stone or intraluminal filling defects seen. Prominent right-sided hydronephrosis and hydroureter noted matching the CT finding. Cortical thickness and echogenicity are normal on the right. No abscess or perinephric suspicious finding. Pyelonephritis is still possible. Dilatation of the left renal pelvis is present also matching the CT study. Patient has multiple variably sized left renal cyst. No suspicious characteristics. Left kidney is smaller than the right with less well-defined parenchyma. Left-sided medical renal disease is not excluded. Right kidney is approximately 12.7 x 7.2 x 8.0 cm. Left kidney is 11.9 x 7.0 x 5.6 cm. This probably exaggerates the true size of the kidney on the left due to the lobulated contour and multiple cysts. IMPRESSION: Prominent right-sided hydronephrosis without obstructive mass identifiable. Right renal cortical thickness and echogenicity are normal range. This does not exclude pyelonephritis. Smaller left kidney with multiple cysts and hydronephrosis of the pelvis and calices. This matches the CT study. Left-sided cortical thinning is seen with multiple left-sided simple cysts. No other significant findings. Medical problem list: Septic shock secondary to right sided pyelonephritis with hydronephrosis with history of urinary retention with history of neurogenic bladder secondary to spina bifida, resolved Acute renal injury secondary to dehydration. Renal ultrasound showing smaller left kidney with multiple cysts and hydronephrosis bilateral. History of urinary retention secondary to neurogenic bladder with noted obstructive uropathy with history of spina bifida GERD with hiatal hernia Hypokalemia resolved Hypomagnesia resolved History of spina bifida Hypertension Brief History of Present Illness: 52-year-old male with history of spina bifida and neurogenic bladder came to the ER for evaluation. Patient self caths. Patient was not feeling well. He thought it was related to medication recently. He was placed on medication-antibiotic therapy and blood pressure medication. In the emergency room he was evaluated. CT scan revealed right hydronephrosis with pyelonephritis. Patient was admitted for further evaluation. Blood pressures were decreased. Patient was given IV fluids. IV antibiotic therapy started. Hospital Course: Patient presented with increasing fatigue and feeling ill. Patient was found to have right pyelonephritis with hydronephrosis. Patient with history of urinary retention secondary to neurogenic bladder/obstructive uropathy and history of spina bifida. Patient had been doing self caths at home. Blood pressure was decreased. Septic shock was identified. Patient was transferred to ICU. Patient was given aggressive IV fluid resuscitation and start on vasopressor therapy. Antibiotics were initiated. Nephrology and Urology were consulted. Ruffin catheter was placed. Patient continued to do well during the course of his stay. Blood cultures and urine cultures obtained. Both were negative. Patient responded to IV antibiotic therapy. At discharge patient will continue with Cipro 500 mg 1 pill twice daily for 10 days. Ruffin catheter has been discontinued. He will continue with self caths every 6 hr. information services tech will help in providing catheter equipment. Recommendation is for the patient to follow up with urology in 2-4 weeks to follow up this hospitalization and continue his care. As mentioned above patient with history of urinary retention secondary to neurogenic bladder and history of spina bifida. Patient will continue with self caths as mentioned. Patient to get help with catheterization equipment. Patient had acute renal injury likely from dehydration and septic shock. This improved. Nephrology was consulted. Renal ultrasound showing smaller left kidney with multiple cysts and hydronephrosis bilateral. Renal function remained stable at discharge. Recommendation to recheck lab-BMP in 1 week to monitor his progress. Recommendation for the patient follow up with Nephrology in 2-4 weeks to monitor his progress. Patient has GERD with hiatal hernia. At discharge he will continue with Protonix 40 mg 1 pill once daily. Patient had electrolyte abnormalities. This was replaced during his stay. At discharge lab within normal range. Patient had thrombocytopenia likely related to septic shock. At discharge this improved. Recommendation to recheck lab-CBC in 1-2 weeks to monitor his progress. Patient has hypertension. At discharge he will continue with Norvasc 5 mg daily. Recommendation is to maintain blood pressures less 150/80. Further adjustment can be done by his PCP. Recommendation on no use of Kobi inhibitors in the future due to his renal dysfunction. Patient may return to work on Wednesday. Vital Signs/Physical Exam: Temp Pulse Resp BP Pulse Ox 97.4 F 59 20 143/83 H 97 03/18/18 04:00 03/18/18 04:00 03/18/18 04:00 03/18/18 04:00 03/18/18 04:00 General: Alert, In no apparent distress, Oriented x3, Cooperative HEENT: Atraumatic, Mucous membr. moist/pink Neck: Supple, No Thyromegaly Respiratory: Clear to auscultation bilaterally, Normal air movement Cardiovascular: Normal pulses, Regular rate/rhythm Gastrointestinal: Normal bowel sounds, Soft and benign, Non-distended, No tenderness, No masses, No rebound, No guarding Musculoskeletal: No erythema, No tenderness, No warmth Integumentary: No tenderness/swelling, No erythema, No warmth, No cyanosis Neurological: Normal speech, Normal strength at 5/5 x4 extr, Normal tone, Normal affect Laboratory Data at Discharge: WBC 7.8 K/uL (4.3-10.9) D 03/18/18 04:37 Hgb 12.6 g/dL (13.6-17.9) L 03/18/18 04:37 Hct 36.1 % (39.6-49.0) L 03/18/18 04:37 Plt Count 138 K/uL (152-406) L D 03/18/18 04:37 PT 14.1 SECONDS (9.5-12.5) H 03/14/18 17:54 INR 1.19 03/14/18 17:54 APTT 27.2 SECONDS (24.3-36.9) 03/14/18 17:54 Sodium 143 mmol/L (136-145) 03/18/18 04:37 Potassium 3.7 mmol/L (3.5-5.1) 03/18/18 04:37 BUN 8 mg/dL (7-18) 03/18/18 04:37 Creatinine 1.00 mg/dL (0.55-1.3) 03/18/18 04:37 Glucose 127 mg/dL (74-106) H 03/18/18 04:37 Uric Acid 4.4 mg/dL (3.5-7.2) 03/15/18 12:08 Phosphorus 3.4 mg/dL (2.5-4.9) D 03/18/18 04:37 Magnesium 1.8 mg/dL (1.8-2.4) 03/18/18 04:37 Total Bilirubin 0.5 mg/dL (0.2-1.0) 03/18/18 04:37 AST 17 U/L (15-37) 03/18/18 04:37 ALT 17 U/L (12-78) 03/18/18 04:37 Alkaline Phosphatase 73 U/L (45-117) 03/18/18 04:37 Home Medications: Amlodipine Besylate [Norvasc] 5 mg PO DAILY #30 tablet 03/18/18 Ciprofloxacin HCl [Cipro 500 MG Tablet] 500 mg PO BID #20 tab 03/18/18 Pantoprazole [Protonix Tab*] 40 mg PO ACB #30 tab 03/18/18 New Medications: Amlodipine Besylate [Norvasc] 5 mg PO DAILY #30 tablet Ciprofloxacin HCl [Cipro 500 MG Tablet] 500 mg PO BID #20 tab Pantoprazole [Protonix Tab*] 40 mg PO ACB #30 tab Patient Discharge Instructions: 1. Patient will need a follow up with his PCP in 1 week to follow up this hospitalization. 2. Patient presented with increasing fatigue and feeling ill. Patient was found to have right pyelonephritis with hydronephrosis. Patient with history of urinary retention secondary to neurogenic bladder/obstructive uropathy and history of spina bifida. Patient had been doing self caths at home. Blood pressure was decreased. Septic shock was identified. Nephrology and Urology were consulted. Ruffin catheter was placed. Patient continued to do well during the course of his stay. Blood cultures and urine cultures obtained. Both were negative. Patient responded to IV antibiotic therapy and treatment. At discharge patient will continue with Cipro 500 mg 1 pill twice daily for 10 days. Ruffin catheter has been discontinued. He will continue with self caths every 6 hr. information services tech will help in providing catheter equipment. Recommendation is for the patient to follow up with urology in 2-4 weeks to follow up this hospitalization and continue his care. 3. As mentioned above patient with history of urinary retention secondary to neurogenic bladder and history of spina bifida. Patient will continue with self caths as mentioned. Patient to get help with catheterization equipment. 4. Patient had acute renal injury likely from dehydration and septic shock. This improved. Nephrology was consulted. Renal ultrasound showing smaller left kidney with multiple cysts and hydronephrosis bilateral. Renal function remained stable at discharge. Recommendation to recheck lab-BMP in 1 week to monitor his progress. Recommendation for the patient follow up with Nephrology in 2-4 weeks to monitor his progress. 5. Patient has GERD with hiatal hernia. At discharge he will continue with Protonix 40 mg 1 pill once daily. 6. Patient had electrolyte abnormalities. This was replaced during his stay. At discharge lab within normal range. 7. Patient had thrombocytopenia likely related to septic shock. At discharge this improved. Recommendation to recheck lab-CBC in 1-2 weeks to monitor his progress. 8. Patient has hypertension. Patient will be started on Norvasc 5 mg daily. Recommendation is to maintain blood pressures less 150/80. Further adjustment can be done by his PCP. Recommend not to use KOBI-inhibitor due to renal dysfunction. 9. Patient may return to work on Wednesday. Diet: AHA Activity: Ad giacomo Followup: Mary Alcocer MD [ACTIVE - CAN ADMIT] - (FOLLOW UP APPOINTMENT SCHEDULED FOR 04/01/18 AT 8:00 AM. ) Time spent managing pt's care (in minutes): 55
[2018-03-18 12:01] LABS: Urine Protein/Creatinine Ratio 0.56 ratio (<0.15)
--- NOTE | 2018-03-18 23:08 | PN ---
Date of Progress Note: 03/18/2018 Chief Complaint: Acute kidney injury. History Of Present Illness: Acute kidney injury, nonoliguric secondary to obstructive uropathy compl icated by effects of Bactrim, hydrochlorothiazide, and angiotensin receptor roman causing renal hyp operfusion and leading to the prerenal azotemia and nonoliguric ATN. Creatinine improved and was ran ging from 1.3 and improved to 1.0 yesterday. Review of Systems: The patient denies fever, chills. Physical Examination: Lungs: Clear to auscultation bilaterally. Heart: S1, S2. Abdomen: Soft, benign. Extremities: No edema. Laboratory Data: Hemoglobin 12.6, WBC 7.8, platelet count is 138,000. Chemistry show today sodium 1 43, potassium 3.7, chloride 110, CO2 27, BUN 8, creatinine 1.0, glucose 127, calcium 8.4. On arrival to the hospital, creatinine was up to 1.5 and BUN was 18. Impression And Plan: 1.Acute kidney injury with prerenal azotemia, obstructive uropathy. The patient will follow up with urologist. 2.Hypertension. Blood pressure is in acceptable control. Continue low-sodium diet and adequate p.o . fluid intake. The patient completed IV fluids. 3.Obstructive uropathy. Continue antibiotics and follow up on the urine culture. 4.Septic shock, resolved. 5.Obstructive uropathy secondary to neurogenic bladder. The patient will follow up with Urology. MELISSA/HUMBLE Voice ID: [id number] Report ID: [id number]
== END 2018-03-18 12:01 | disposition home or self-care (01) | DRG 871 ==
LOC: ER 17:34 → ERHOLD 19:39 → 4TH 20:39 → 3RD-ICU 03-15 08:28 → 4TH 03-16 20:34
PROVIDERS: ADMIT Internal Medicine; ATTEND Internal Medicine
DX: A41.9 Sepsis, unspecified organism (principal); R65.21 Severe sepsis with septic shock; N17.9 Acute kidney failure, unspecified; N13.6 Pyonephrosis; R33.9 Retention of urine, unspecified; N31.9 Neuromuscular dysfunction of bladder, unspecified; Q05.9 Spina bifida, unspecified; E86.0 Dehydration; K21.9 Gastro-esophageal reflux disease without esophagitis; K44.9 Diaphragmatic hernia without obstruction or gangrene; E87.6 Hypokalemia; E83.42 Hypomagnesemia; I10 Essential (primary) hypertension
CPT/HCPCS: 36415; 51702; 71045; 74176; 76770; 80048; 80053; 80069; 80076; 80202; 81003; 81015; 82550; 82553; 82570; 83605; 83735; 83880; 83930; 83935; 84132; 84145; 84156; 84300; 84484; 84550; 85025; 85610; 85730; 87040; 87086; 87088; 87205; 93005; 96361; 96365; 99285; J0696; J1650; J3411; J3475; J7030; J7060

== ENCOUNTER 2022-01-13 08:23 | Emergency (ER) | payer OTHER, SELFPAY ==
[2022-01-13 08:47] LABS: Absolute Lymphocytes (CBC) 0.6 K/uL (0.7-4.9); Hematocrit 43.1 % (39.6-49.0); Lymphocytes % 15.1 % (15.3-44.8); MCV 85.8 fL (80-100); MPV 8.6 fL (7.6-11.3); RBC Red Blood Cell Count 5.03 M/uL (4.33-5.43)
[2022-01-13 09:05] LABS: Albumin 3.7 g/dL (3.4-5.0); Bilirubin Total 0.5 mg/dL (0.2-1.0); Potassium 3.7 mmol/L (3.5-5.1); Protein, Total 7.4 g/dL (6.4-8.2)
--- NOTE | 2022-01-13 09:17 | RAD REPORT ---
EXAM DESCRIPTION: CT - Abdomen Pelvis Wo Contrast - 01/13/2022 8:59 am CLINICAL HISTORY: Abdominal pain COMPARISON: 2018 TECHNIQUE: Computed axial tomography of the abdomen and pelvis was obtained. IV and oral contrast we re not requested. All CT scans are performed using dose optimization technique as appropriate and may include automated exposure control or mA/KV adjustment according to patient size. FINDINGS: The evaluation of solid organs, vessels and bowel is limited secondary to the lack of con trast administration. Mild to moderate right hydronephrosis is without significant change. Proximal and mid right ureter ar e dilated. There is an abrupt transition of caliber of right ureter within upper pelvis as the right ureter abuts the iliac vessels. The distal right ureter is small. Several left renal cysts are present. Mild dilatation of the left renal pelvis unchanged from the velia or exam. Left ureter normal caliber. The bladder wall is thickened. Bilateral small renal calculi. The liver, spleen, pancreas and adrenals appear grossly normal. Prostate gland is mildly enlarged containing calcifications. Moderate amount stool is present in the colon. No evidence diverticulitis. Spina bifida appears be present. IMPRESSION: Bilateral nonobstructing renal calculi Chronic [id number] right hydronephrosis and right hydroureter. There is an abrupt transition of caliber of the right ureter as it crosses iliac vessels. Perhaps this is the cause of the dilatation of the right ureter. Bladder wall thickening
[2022-01-13 09:18] LABS: Urine Blood Trace-intact (Negative); Urine Glucose Negative (Negative); Urine Protein Negative (Negative)
[2022-01-13 09:39] LABS: Urine Bacteria >50 /HPF (<20); Urine RBC <5 /HPF (None Seen)
--- NOTE | 2022-01-13 10:21 | ER ---
Nurse's Notes [facility] Name: Patricia Douglas Age: 56 yrs Sex: Male : 1965 Arrival Date: 01/13/2022 Time: 08:25 Bed 4 Private MD: Diagnosis: Paresthesia of skin;Left flank pain Presentation: 01/13 08:26 Chief complaint: EMS states: DEHYDRATION. Coronavirus screen: At this time, the client bp does not indicate any symptoms associated with coronavirus-19. Ebola Screen: No symptoms or risks identified at this time. Initial Sepsis Screen: Does the patient meet any 2 criteria? No. Patient's initial sepsis screen is negative. Does the patient have a suspected source of infection? No. Patient's initial sepsis screen is negative. Risk Assessment: Do you want to hurt yourself or someone else? Patient reports no desire to harm self or others. Onset of symptoms was January 13, 2022. Care prior to arrival: Glucose check: 102. 08:26 Method Of Arrival: EMS: [facility] bp 08:26 Acuity: NANDINI 3 bp Triage Assessment: 08:27 General: Appears in no apparent distress. comfortable, Behavior is cooperative, bp appropriate for age, anxious. Pain: Denies pain. EENT: No deficits noted. Neuro: Level of Consciousness is awake, alert, obeys commands, Oriented to Appropriate for age. Cardiovascular: Rhythm is sinus rhythm. Respiratory: No deficits noted. GI: No signs and/or symptoms were reported involving the gastrointestinal system. : No signs and/or symptoms were reported regarding the genitourinary system. Derm: No deficits noted. Musculoskeletal: No deficits noted. Historical: - Allergies: 08:27 Codeine; bp - PMHx: 08:27 Ulcers; bp - Immunization history:: Adult Immunizations up to date, Client reports having NOT received the Covid vaccine. - Social history:: Smoking status: Patient denies any tobacco usage or history of. Screenin:29 Abuse screen: Denies threats or abuse. Denies injuries from another. Nutritional bp screening: No deficits noted. Tuberculosis screening: No symptoms or risk factors identified. Fall Risk None identified. Assessment: 08:29 General: SEE TRIAGE NOTE. bp 09:57 Reassessment: No changes from previously documented assessment. Patient and/or family bp updated on plan of care and expected duration. Pain level reassessed. 10:37 Reassessment: PT D/C HOME AMBULATORY, DX WITH FLANK PAIN. bp Vital Signs: 08:26 BP 145 / 91; Pulse 68; Resp 20; Temp 98.3; Pulse Ox 97% ; Weight 81.65 kg; Height 6 ft. bp 2 in. (187.96 cm); 09:56 BP 158 / 104; Pulse 63; Resp 16; Pulse Ox 95% ; bp 10:37 BP 158 / 104; Pulse 64; Resp 16; Pulse Ox 100% ; bp 08:26 Body Mass Index 23.11 (81.65 kg, 187.96 cm) bp ED Course: 08:25 Patient arrived in ED. bp 08:27 Triage completed. bp 08:27 Arm band placed on. bp 08:28 Jaylen Garcia DO is Attending Physician. ms3 08:29 Patient has correct armband on for positive identification. Bed in low position. Call bp light in reach. Side rails up X2. 08:30 Kraig Cresop, RN is Primary Nurse. bp 08:30 Inserted saline lock: 20 gauge in right forearm, using aseptic technique. Blood bp collected. 09:01 CT Abd/Pelvis - Without Contrast In Process Unspecified. EDMS 10:37 No provider procedures requiring assistance completed. IV discontinued, intact, bp bleeding controlled, No redness/swelling at site. Pressure dressing applied. Administered Medications: No medications were administered Medication: 08:29 VIS not applicable for this client. bp Outcome: 10:20 Discharge ordered by . ms3 10:37 Discharged to home ambulatory, with friend. bp 10:37 Condition: stable 10:37 Discharge instructions given to patient, Instructed on discharge instructions, follow up and referral plans. Demonstrated understanding of instructions, follow-up care. 10:38 Patient left the ED. bp Signatures: Dispatcher [employer] EDMS Kraig Crespo, RN RN bp Jaylen Garcia DO DO ms3
--- NOTE | 2022-01-13 10:21 | EDPHYS ---
Physician Documentation [facility] Name: Patricia Douglas Age: 56 yrs Sex: Male : 1965 Arrival Date: 01/13/2022 Time: 08:25 Bed 4 Private MD: ED Physician Jaylen Garcia HPI: 01/13 08:32 This 56 yrs old Male presents to ER via EMS with complaints of DEHYDRATION. ms3 08:32 The patient complains of pain in the left mid back. The pain does not radiate. Onset: ms3 The symptoms/episode began/occurred acutely, 1.5 hour(s) ago. Modifying factors: The symptoms are alleviated by nothing. the symptoms are aggravated by nothing. Associated signs and symptoms: Pertinent negatives: diarrhea, fever. Severity of pain: At its worst the pain was moderate in the emergency department the pain has resolved. Historical: - Allergies: 08:27 Codeine; bp - PMHx: 08:27 Ulcers; bp - Immunization history:: Adult Immunizations up to date, Client reports having NOT received the Covid vaccine. - Social history:: Smoking status: Patient denies any tobacco usage or history of. ROS: 08:32 Constitutional: Negative for fever, and chills. ENT: Negative for injury, pain, and ms3 discharge, Neck: Negative for injury, pain, and swelling, Cardiovascular: Negative for chest pain, and palpitations. Respiratory: Negative for shortness of breath, cough, wheezing, and pleuritic chest pain. 08:32 Skin: Negative for injury, rash, and discoloration. 08:32 Abdomen/GI: Positive for abdominal pain. 08:32 All other systems are negative. Exam: 08:32 Constitutional: This is a well developed, well nourished patient who is awake, alert, ms3 and in no acute distress. Head/Face: Normocephalic, atraumatic. Eyes: Pupils equal round and reactive to light, extra-ocular motions intact. Lids and lashes normal. Conjunctiva and sclera are non-icteric and not injected. Periorbital areas with no swelling, redness, or edema. Chest/axilla: Normal chest wall appearance and motion. Nontender with no deformity. Cardiovascular: Regular rate and rhythm with a normal S1 and S2. No gallops, murmurs, or rubs. Normal PMI, no JVD. No pulse deficits. Respiratory: Lungs have equal breath sounds bilaterally, clear to auscultation and percussion. No rales, rhonchi or wheezes noted. No increased work of breathing, no retractions or nasal flaring. Abdomen/GI: Soft, non-tender, with normal bowel sounds. No distension or tympany. No guarding or rebound. No evidence of tenderness throughout. Skin: Warm, dry with normal turgor. Normal color with no rashes, no lesions, and no evidence of cellulitis. MS/ Extremity: Pulses equal, no cyanosis. Neurovascular intact. Full, normal range of motion. Psych: Awake, alert, with orientation to person, place and time. Behavior, mood, and affect are within normal limits. Vital Signs: 08:26 BP 145 / 91; Pulse 68; Resp 20; Temp 98.3; Pulse Ox 97% ; Weight 81.65 kg; Height 6 ft. bp 2 in. (187.96 cm); 09:56 BP 158 / 104; Pulse 63; Resp 16; Pulse Ox 95% ; bp 10:37 BP 158 / 104; Pulse 64; Resp 16; Pulse Ox 100% ; bp 08:26 Body Mass Index 23.11 (81.65 kg, 187.96 cm) bp MDM: 08:28 Patient medically screened. ms3 08:32 Differential diagnosis: nephrolithiasis, pyelonephritis, UTI. ms3 14:15 Data reviewed: vital signs, nurses notes, lab test result(s), radiologic studies, CT ms3 scan, and as a result, I will discharge patient. Counseling: I had a detailed discussion with the patient and/or guardian regarding: the historical points, exam findings, and any diagnostic results supporting the discharge/admit diagnosis, lab results, radiology results, the need for outpatient follow up, to return to the emergency department if symptoms worsen or persist or if there are any questions or concerns that arise at home. ED course: Discussed labs, CT, physical exam findings with patient. Patient to follow-up with primary care physician in 2 to 3 days. Patient understands and agrees with plan. All questions were answered. Return precautions discussed include worsening symptoms, or any other concerns. On reevaluation patient is alert and oriented x4, in no apparent distress, nontoxic-appearing, speaking full sentences, ambulatory in emergency department.. 07/19 08:29 Order name: CBC with Diff; Complete Time: 09:19 ms3 01/13 08:29 Order name: CMP; Complete Time: 09:19 ms3 01/13 08:29 Order name: Lipase; Complete Time: 09:19 ms3 01/13 08:29 Order name: Urine Microscopic Only; Complete Time: 10:17 ms3 01/13 09:18 Order name: Urine Dipstick-Ancillary; Complete Time: 09:19 EDMS 01/13 09:43 Order name: Urine Culture EDMS 01/13 08:29 Order name: CT Abd/Pelvis - Without Contrast; Complete Time: 09:19 ms3 01/13 08:29 Order name: IV Saline Lock; Complete Time: 08:48 ms3 01/13 08:29 Order name: Labs collected and sent; Complete Time: 08:48 ms3 01/13 08:29 Order name: Urine Dipstick-Ancillary (obtain specimen); Complete Time: 09:30 ms3 Administered Medications: No medications were administered Disposition Summary: 01/13/22 10:20 Discharge Ordered Location: Home ms3 Problem: new ms3 Symptoms: are unchanged ms3 Condition: Stable ms3 Diagnosis - Paresthesia of skin ms3 - Left flank pain ms3 Followup: ms3 - With: Private Physician - When: 2 - 3 days - Reason: Re-evaluation by your physician Discharge Instructions: - Discharge Summary Sheet ms3 - Flank Pain, Adult ms3 - Paresthesia, [id number]-[id number] ms3 Forms: - Medication Reconciliation Form ms3 - Thank You Letter ms3 - Work release form [id number] - Antibiotic Education ms3 - Prescription Opioid Use ms3 Signatures: Dispatcher [employer] Kraig Calero, RN RN Jaylen Castillo DO DO ms3
[2022-01-13 10:46] VITALS: TEMP 98.3
[2022-01-13 10:48] VITALS: BP 158/104
[2022-01-13 10:49] VITALS: O2SAT 100
--- OUTSIDE RECORDS SUMMARY | 2022-01-15 14:06 | XMS REPORT | Continuity of Care Document ---
:1965 Author Organization [facility] t Address [address] [place] [address] Care Team Providers Name Role Phone Jass Son Attending Clinician Unavailable Cr Carpio Attending Clinician Unavailable KELTON Attending Clinician Unavailable Physician, Primary or Family Admitting Clinician Unavailabl e Payers Payer Name Policy Type Policy Number Effective Date Expiration Date S ource Problems This patient has no known problems. Allergies, Adverse Reactions, Alerts Allergy Allergy Status Severity Reaction(s) Onset Inactive Treating Comm ents Source Name Type Date Date Clinician CODEINE DA Active U 2005-0 [facility] 2-24 [place] 00:00: d 00 [facility] No Known DA Active U 2004-0 [facility] Contrast 2-24 [place] Allergie 00:00: d [facility] No Known DA Active U 2004-0 [facility] Food 2-24 [place] Allergie 00:00: d [facility] No Known DA Active U 2005-0 [facility] Other 2-24 [place] Allergie 00:00: d [facility] Medications This patient has no known medications. Procedures This patient has no known procedures. Encounters Start End Encounter Admission Attending Care Care Encounter Source Date/Time Date/Time Type Type Clinicians Facility Department ID 2022-01-15 2022-01-15 Emergency EM Son, [facility]M [facility] [id number] [facility] 03:37:00 05:30:00 Jass [id number] [facility] canelo [facility] 2022-01-15 2022-01-15 Emergency EM Son, HCAPM M[place]ALES [id number] [facility] 03:37:00 05:30:00 Jass Franks [facility] 2021-10-21 2021-10-21 Emergency EM Onini, HCACL AERS [id number] 20-[address] [facility] 19:43:00 22:12:00 [place] [id number] Cl [facility] 2021-10-21 2021-10-21 Emergency EM Onini, HCACL HCACL [id number] [facility] 19:43:00 22:12:00 [place] 85 Cl [facility] 2020-04-29 2020-04-29 Outpatient [facility] [id number] [place] 00:00:00 00:00:00 [place] [address] 2020-04-02 2020-04-02 Outpatient [facility] [id number] [place] 00:00:00 00:00:00 [place] [address] Results Test Description Test Time Test Comments Results Result Comments Source UA RFLX MICR CULT IF INDICATED 2022-01-15 05:12:00 Test Item Value Reference Range Interpretation Comme nts UA COLOR (test code = COLU) YELLOW discript YEL/STRAW UA APPEARANCE (test code = APPU) CLEAR discript CLEAR UA GLUCOSE DIPSTICK (test code = DGLUU) NEGATIVE mg/dL NEG UA BILIRUBIN DIPSTICK (test code = BILU) NEGATIVE mg/dL NEG UA KETONE DIPSTICK (test code = KETU) 1+ mg/dL NEG UA SPECIFIC GRAVITY (test code = SGU) <=1.005 SG 1.005-1.030 UA BLOOD DIPSTICK (test code = DAI) NEGATIVE mg/DL NEG UA PH DIPSTICK (test code = CHELE) 5.5 pH UNITS 5.0-7.0 UA PROTEIN DIPSTICK (test code = PROU) NEGATIVE mg/dL NEG UA UROBILINIOGEN DIPSTICK (test code = URO) 0.2 mg/dL <2.0 UA NITRITE DIPSTICK (test code = BERNIE) NEGATIVE SCREEN NEG UA LEUKOCYTE ESTERASE DIPSTICK (test code = LEUU) 1+ Leuk/mcL NEGA TIVE A UA CULTURE NEEDED? (test code = UACULT) NO, WBC<10 Criteria Culture CHK UA WBC (test code = WBCU) 0-1 #WBC/HPF 0-3 UA RBC (test code = RBCU) 0-1 #RBC/HPF 0-3 UA BACTERIA (test code = BACU) TRACE /HPF NONE-TRACE UA SQUAMOUS CELLS (test code = SQU) NONE SEEN /HPF NONE Indication for culture: [id number] 05:09:00 Test Item Value Reference Range Interpretation Comments WHITE BLOOD CELL 3.6 K/mm3 3.5-11.0 N (test code = WBC) RED BLOOD CELL (test 4.88 M/mm3 4.70-6.10 N code = RBC) HEMOGLOBIN (test code 13.9 G/DL 12.3-15.9 N = HGB) HEMATOCRIT (test code 41.5 % 35.8-46.7 N = HCT) MEAN CELL VOLUME 85.0 Fl 86.3-98.9 L (test code = MCV) MEAN CELL HGB (test 28.5 pg 28.9-34.4 L code = MCH) MEAN CELL HGB 33.5 G/DL 32.1-34.5 N CONCETRATION (test code = MCHC) RED CELL DISTRIBUTION 13.1 SD 11.5-14.5 N WIDTH (test code = RDW) PLATELET COUNT (test 136 K/mm3 150-450 L code = PLT) MEAN PLATELET VOLUME 10.90 fL 7.0-9.6 H (test code = MPV) NEUTROPHIL % (test 53.6 % 40-76 N code = NT%) IMMATURE GRANULOCYTE 0.3 % 0.0-5.0 N % (test code = IG%) LYMPHOCYTE % (test 35.0 % 20.5-51.1 N code = LY%) MONOCYTE % (test code 8.0 % 1.7-9.3 N = MO%) EOSINOPHIL % (test 2.8 % 0.0-6.0 N code = EO%) BASOPHIL % (test code 0.3 % 0.0-2.0 N = BA%) NUCLEATED RBC % (test 0.0 /100WBC% 0.0-1.0 N code = NRBC%) NEUTROPHIL # (test 2.0 K/mm3 1.8-7.6 N code = NT#) IMMATURE GRANULOCYTE 0.01 x10 3/uL 0.00-0.03 N # (test code = IG#) LYMPHOCYTE # (test 1.3 K/mm3 0.6-3.0 N code = LY#) MONOCYTE # (test code 0.3 K/mm3 0.2-1.5 N = MO#) EOSINOPHIL # (test 0.1 K/mm3 0.0-0.4 N code = EO#) BASOPHIL # (test code 0.0 K/mm3 0.0-0.2 N = BA#) NUCLEATED RBC # (test 0.0 K/mm3 0.00-0.01 N code = NRBC#) MANUAL DIFF REQUIRED NO DIFF/SCN CRITERIA SLIDE R LAKEISHAW (test code = MDIFF) CONSISTA NT WITH AUTO DIFFERENTI AL. COMPREHENSIVE METABOLIC [id number] 04:41:00 Test Item Value Reference Range Interpretation Comments SODIUM (test code = NA) 142 mmol/L 134-147 N POTASSIUM (test code = 3.6 mmol/L 3.4-5.0 N K) CHLORIDE (test code = 111 mmol/L 100-108 H CL) CARBON DIOXIDE (test 25 mmol/L 21-32 N code = CO2) ANION GAP (test code = 6.0 GAP calc 4.0-15.0 N GAP) GLUCOSE (test code = 104 MG/DL 70-110 N GLU) BLOOD UREA NITROGEN 8 MG/DL 7-18 N (test code = BUN) GLOMERULAR FILTRATION >=60 max estimate >60 RATE (test code = GFR) estGFR CREATININE (test code = 0.9 MG/DL 0.8-1.3 N CREAT) TOTAL PROTEIN (test code 6.8 G/DL 6.4-8.2 N = PROT) ALBUMIN (test code = 3.3 G/DL 3.4-5.0 L ALB) GLOBULIN (test code = 3.5 GM/dL GLOB) ALBUMIN/GLOBULIN RATIO 0.9 RATIO 1.2-2.2 L (test code = A/G) CALCIUM (test code = CA) 8.5 MG/DL 8.5-10.1 N BILIRUBIN TOTAL (test 0.50 MG/DL 0.2-1.2 N code = BILT) SGOT/AST (test code = 21 Unit/L 15-37 N AST) SGPT/ALT (test code = 20 Unit/L 12-78 N ALT) ALKALINE PHOSPHATASE 76 Unit/L 50-136 N TOTAL (test code = ALKP)
== END 2022-01-13 10:38 | disposition home or self-care (01) ==
LOC: ER 08:23
DX: R10.9 Unspecified abdominal pain (principal); R20.2 Paresthesia of skin; Z88.5 Allergy status to narcotic agent
CPT/HCPCS: 36415; 74176; 80053; 81003; 81015; 83690; 85025; 87077; 87086; 87088; 87186; 99284